=== PATIENT | female | born 1970 | race Asian ===

== ENCOUNTER 2021-12-25 16:38 | Outpatient (CLI) | payer OTHER | END 2021-12-25 16:39 | disposition home or self-care (01) | LOC: MADLABSP 16:38 | PROVIDERS: ATTEND Family Medicine | DX: R35.0 Frequency of micturition (principal) | CPT/HCPCS: 87086; 88175 ==

== ENCOUNTER 2022-01-14 11:22 | Outpatient (CLI) | payer OTHER ==
[2022-01-14 16:27] LABS: Hemoglobin A1c 6.1 % (4.0-6.0)
[2022-01-14 16:50] LABS: HIV (1/2) Antibody/Antigen Non-Reactive (NonReactive); Vitamin D, 25 Hydroxy 16.2 ng/ml (> 30.0)
== END 2022-01-14 11:23 | disposition home or self-care (01) ==
LOC: MADLABBHPM 11:22 → MADLAB 11:23
PROVIDERS: ATTEND Family Medicine
DX: Z11.4 Encounter for screening for human immunodeficiency virus [HIV] (principal); Z78.0 Asymptomatic menopausal state; R73.03 Prediabetes; E55.9 Vitamin D deficiency, unspecified
CPT/HCPCS: 82306; 83036; 87389

== ENCOUNTER 2022-01-22 15:38 | Outpatient (CLI) | payer OTHER | END 2022-01-22 15:39 | disposition home or self-care (01) | LOC: MADRAD 15:38 | PROVIDERS: ATTEND Family Medicine | DX: R10.32 Left lower quadrant pain (principal); K59.00 Constipation, unspecified | CPT/HCPCS: 74018 ==

== ENCOUNTER 2022-04-30 10:51 | Outpatient (CLI) | payer OTHER | END 2022-04-30 10:52 | disposition home or self-care (01) | LOC: MADULT 10:51 | PROVIDERS: ATTEND Family Medicine | DX: N32.81 Overactive bladder (principal) | CPT/HCPCS: 76770 ==

== ENCOUNTER 2025-01-26 11:42 | Outpatient (CLI) | payer OTHER | END 2025-01-26 11:43 | disposition home or self-care (01) | LOC: MADLAB 11:42 → MADRAD 11:43 | PROVIDERS: ATTEND Registered Nurse | DX: M46.1 Sacroiliitis, not elsewhere classified (principal); M54.50 Low back pain, unspecified; M47.816 Spondylosis without myelopathy or radiculopathy, lumbar region; M41.9 Scoliosis, unspecified | CPT/HCPCS: 72100 ==